=== PATIENT | female | born 1995 | race Caucasian/White ===

== ENCOUNTER 2018-05-21 16:46 | Observation (INO) ==
[2018-05-21] MEDS ORDERED: hydrOXYzine pamoate 25 MG CAPSULE PO PRN (22:52)
[2018-05-21] MEDS ORDERED: Acetaminophen/Aspirin/Caffeine TABLET PO PRN (22:57)
[2018-05-21] MEDS ORDERED: Ondansetron ODT 4 MG TAB.RAPDIS SL PRN (23:02)
[2018-05-21] MEDS ORDERED: NON-FORMULARY MEDICATION 1 EACH EACH (Rizatriptan Benzoate [Maxalt] 10 MG) PO SCH (23:34)
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
[2018-05-22 01:49] LABS: Amphetamine Screen,Urine Negative ng/mL (Cutoff=1000); Barbiturate Screen,Urine Negative ng/mL (Cutoff=200); Benzodiazepines Screen,Urine Negative ng/mL (Cutoff=200); Cannabinoid Screen,Urine Negative ng/mL (Cutoff = 50); Cocaine Screen,Urine Negative ng/mL (Cutoff= 300); Opiate Screen,Urine Negative ng/mL (Cutoff=300); Phencyclidine Screen,Urine Negative ng/mL (Cutoff=25)
[2018-05-22] MEDS ORDERED: *HR* LORazepam 2 MG/ML VIAL IVP ONE ×2 (03:21→03:27)
[2018-05-22] MEDS ORDERED: *HR* LORazepam 0.5 MG TABLET PO ONE (03:32)
[2018-05-22] MEDS: Acetaminophen/Butalbital/CaffeineTABLET PO PRN ×2 (03:52→18:20)
[2018-05-22 04:34] LABS: Basophils % 0.5 %; Eosinophils # 0.1 K/mcL (0.0-0.6); Eosinophils % 1.6 %; Hemoglobin 12.8 g/dL (11.5-15.4); Immature Granulocytes % 0.2 % (0-4); Lymphocytes # 2.3 K/mcL (0.6-4.6); Lymphocytes % 29.1 %; Mean Corpuscular Hemoglobin 26.2 pg (28.0-33.3); Mean Platelet Volume 10.5 fL (9.4-12.4); Monocytes # 0.5 K/mcL (0.0-1.3); Monocytes % 5.9 %; Platelet Count 247 K/mcL (140-400); Red Blood Count 4.88 M/mcL (3.82-4.97); Red Cell Distribution Width 13.7 % (11.5-14.5); Segmented Neutrophils % 62.7 %
[2018-05-22 04:50] LABS: Alanine Aminotransferase 21 Units/L (7-52); Albumin 4.2 g/dL (3.5-5.7); Albumin/Globulin Ratio 1.6 (1.1-2.2); Alkaline Phosphatase 70 Units/L (34-104); Aspartate Amino Transferase 18 Units/L (13-39); BUN/Creatinine Ratio 19 (6-26); Bilirubin,Total 0.3 mg/dL (0.3-1.0); Blood Urea Nitrogen 10 mg/dL (6-20); Calcium 9.5 mg/dL (8.6-10.3); Carbon Dioxide 23 mEq/L (23-29); Chloride 107 mEq/L (98-107); Globulin 2.7 g/dL (2.4-3.5); Glucose 83 mg/dL (70-105); Osmolality,Calculated 284 (280-300); Potassium 3.7 mEq/L (3.5-5.1); Sodium 138 mEq/L (136-145); Total Protein 6.9 g/dL (6.4-8.9); eGFR For Non-African Americans > 60 (> 60)
[2018-05-22] MEDS: *HR* Heparin 5,000 UNIT/ML VIAL SQ SCH ×2 (07:05→16:13)
--- NOTE | 2018-05-22 08:59 | Internal Med Progress Note ---
Hospitalist Progress Note - Encounter Date of Encounter: 05/22/18 Time of Encounter: 09:00 - Subjective Interval History: 22 year old female with a history of migraine headaches who presents with a chief complaint of right sided headache and left hand numbness and weakness. Her headache began approximately 13 days ago and she ranks it as severe and cons tant. Her sensory changes and weakness were first noticed at 9am this morning when the patient woke up. She states that her hand feels numb, she can sense pressure, but not fine touch. She states that the sensory changes cover her entire left hand to the wrist. She also notes weakness in her hand with a complete inability to move her left hand or any of her fingers - Exam Vitals: Temp Pulse Resp BP Pulse Ox 97.5 F L 86 15 134/83 97 05/22/18 07:04 05/22/18 07:04 05/22/18 07:04 05/22/18 07:04 05/22/18 07:04 Exam: Constitutional: alert and oriented, no acute distress, has sunglasses on due to photophobia HEENT: PERRL, EOMI, no oropharyngeal lesions, external ears and nares patent. Head is atraumatic normocephalic. Neck: no jvd, trachea midline Cardiovascular: regular rate and rhythm, no murmurs Respiratory: clear to auscultation bilaterally Abdomen: soft nontender, no guarding or rigidity Extremities: no cyanosis clubbing or edema neurological: -Cranial nerves: EOMI, PERRL, no facial asymmetry, no facial sensory changes, no dysarthria, tongue and uvula midline -Upper extremities: Engine Installer strength is 0/5 in the left hand, 5/5 in the right hand. Rest of upper extremity strength is 5/5 bilaterally. sensory changes on the left hand with decreased sensation to light touch. 2+ bicep reflexes bilate rally. -Lower extremities: strength is 5/5 bilaterally throughout, no sensory changes/. Patellar reflexes 2+ bilaterally. - Assessment and Plan (1) Complicated migraine Current Visit: Yes Status: Acute Assessment and Plan: Pt complains of migraine of 2 week history. Transferred from [facility] Neurology consulted and appreciate recs. Obtain MRI brain and cervical spine Pain control PRN with tramdol, sumatriptan and toradol PRN (2) Left hand weakness Current Visit: Yes Status: Acute Assessment and Plan: See #1. Follow up MRI head (3) Morbid obesity Current Visit: Yes Status: Acute Assessment and Plan: Diet and exercise (4) DVT prophylaxis Current Visit: Yes Status: Acute Assessment and Plan: Heparin sc - Time Spent with Patient Total time spent is greater than 50% in coordination of care (as documented) at patient's floor/unit and/or counseling patient: Internal Medicine: Result - Labs CBC & Chem 7: 05/22/18 03:49 05/22/18 03:49 Labs: Short CBC 05/22/18 Range/Units 03:49 WBC 8.0 (4.3-11.1) K/mcL Hgb 12.8 (11.5-15.4) g/dL Hct 40.0 (35.3-44.9) % Plt Count 247 (140-400) K/mcL Neutrophils # 5.0 (1.6-8.9) K/mcL BMP 05/22/18 03:49 Sodium 138 Potassium 3.7 Chloride 107 Carbon Dioxide 23 BUN 10 Creatinine 0.54 L Glucose 83 Calcium 9.5 Liver Function 05/22/18 Range/Units 03:49 Total Bilirubin 0.3 (0.3-1.0) mg/dL AST 18 (13-39) Units/L ALT 21 (7-52) Units/L Alkaline Phosphatase 70 (34-104) Units/L Albumin 4.2 (3.5-5.7) g/dL Consult Discharge Plan - Plan Referrals: NONE,PCP [Primary Care Provider] -
[2018-05-22] MEDS ORDERED: (Rizatriptan Benzoate [Maxalt] 10 MG) PO PRN (09:00)
[2018-05-22] MEDS: Vitamin B Complex/Vit C/Vit E 1 EACH TABLET PO SCH (09:38)
[2018-05-22] MEDS: Venlafaxine XR (24 HR) 75 MG CAP.ER.24H PO SCH (09:38)
[2018-05-22] MEDS ORDERED: Ketorolac 15 MG/ML VIAL IM ONE (12:00)
[2018-05-22] MEDS ORDERED: SUMAtriptan 6 MG/0.5 ML SQ ONE (12:09)
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
[2018-05-22] MEDS: traMADol 50 MG TABLET PO PRN ×2 (14:19→22:10)
[2018-05-22] MEDS ORDERED: cloNIDine HCl 0.1 MG TABLET PO SCH (21:00)
[2018-05-22] MEDS ORDERED: tiZANidine 4 MG TABLET PO SCH (21:00)
[2018-05-23] MEDS: Acetaminophen/Butalbital/CaffeineTABLET PO PRN ×2 (01:16→08:58)
[2018-05-23 04:12] LABS: Basophils % 0.6 %; Eosinophils # 0.2 K/mcL (0.0-0.6); Eosinophils % 2.2 %; Hematocrit 38.7 % (35.3-44.9); Hemoglobin 11.9 g/dL (11.5-15.4); Immature Granulocytes % 0.3 % (0-4); Lymphocytes % 28.3 %; Mean Corpuscular HGB Conc 30.7 g/dL (31.6-35.5); Mean Corpuscular Hemoglobin 25.5 pg (28.0-33.3); Mean Platelet Volume 10.1 fL (9.4-12.4); Monocytes # 0.4 K/mcL (0.0-1.3); Monocytes % 6.1 %; Neutrophils # 4.5 K/mcL (1.6-8.9); Platelet Count 234 K/mcL (140-400); Red Blood Count 4.66 M/mcL (3.82-4.97); Red Cell Distribution Width 13.9 % (11.5-14.5); Segmented Neutrophils % 62.5 %
[2018-05-23 04:30] LABS: BUN/Creatinine Ratio 23 (6-26); Blood Urea Nitrogen 14 mg/dL (6-20); Calcium 9.2 mg/dL (8.6-10.3); Carbon Dioxide 25 mEq/L (23-29); Chloride 107 mEq/L (98-107); Glucose 111 mg/dL (70-105); Magnesium 1.9 mg/dL (1.6-2.6); Osmolality,Calculated 289 (280-300); Phosphorous 4.8 mg/dL (2.7-4.5); Potassium 3.9 mEq/L (3.5-5.1); Sodium 139 mEq/L (136-145); eGFR For Non-African Americans > 60 (> 60)
[2018-05-23] MEDS: *HR* Heparin 5,000 UNIT/ML VIAL SQ SCH (04:57)
--- NOTE | 2018-05-23 08:34 | Internal Med Progress Note ---
Hospitalist Progress Note - Encounter Date of Encounter: 05/23/18 Time of Encounter: 08:30 - Subjective Interval History: 22 year old female with a history of migraine headaches who presents with a chief complaint of right sided headache and left hand numbness and weakness. Her headache began approximately 13 days ago and she ranks it as severe and cons tant. Her sensory changes and weakness were first noticed at 9am this morning when the patient woke up. She states that her hand feels numb, she can sense pressure, but not fine touch. She states that the sensory changes cover her entire left hand to the wrist. She also notes weakness in her hand with a complete inability to move her left hand or any of her fingers - Exam Vitals: Temp Pulse Resp BP Pulse Ox 97.7 F 79 16 110/66 96 05/23/18 07:58 05/23/18 07:58 05/23/18 07:58 05/23/18 07:58 05/23/18 07:58 Exam: Constitutional: alert and oriented, no acute distress, has sunglasses on due to photophobia HEENT: PERRL, EOMI, no oropharyngeal lesions, external ears and nares patent. Head is atraumatic normocephalic. Neck: no jvd, trachea midline Cardiovascular: regular rate and rhythm, no murmurs Respiratory: clear to auscultation bilaterally Abdomen: soft nontender, no guarding or rigidity Extremities: no cyanosis clubbing or edema neurological: -Cranial nerves: EOMI, PERRL, no facial asymmetry, no facial sensory changes, no dysarthria, tongue and uvula midline -Upper extremities: Podiatrist strength is 0/5 in the left hand, 5/5 in the right hand. Rest of upper extremity strength is 5/5 bilaterally. sensory changes on the left hand with decreased sensation to light touch. 2+ bicep reflexes bilater ally. -Lower extremities: strength is 5/5 bilaterally throughout, no sensory changes/. Patellar reflexes 2+ bilaterally. - Assessment and Plan (1) Complicated migraine Current Visit: Yes Status: Acute Assessment and Plan: Pt complains of migraine of 2 week history. Transferred from [facility] Neurology consulted and appreciate recs. Obtain MRI brain and cervical spine Pain control PRN with tramdol, sumatriptan and toradol PRN (2) Left hand weakness Current Visit: Yes Status: Acute Assessment and Plan: See #1. Follow up MRI head (3) Morbid obesity Current Visit: Yes Status: Acute Assessment and Plan: Diet and exercise (4) DVT prophylaxis Current Visit: Yes Status: Acute Assessment and Plan: Heparin sc - Time Spent with Patient Total time spent is greater than 50% in coordination of care (as documented) at patient's floor/unit and/or counseling patient: Internal Medicine: Result - Labs CBC & Chem 7: 05/23/18 03:50 05/23/18 03:50 Labs: Short CBC 05/23/18 Range/Units 03:50 WBC 7.2 (4.3-11.1) K/mcL Hgb 11.9 (11.5-15.4) g/dL Hct 38.7 (35.3-44.9) % Plt Count 234 (140-400) K/mcL Neutrophils # 4.5 (1.6-8.9) K/mcL BMP 05/23/18 03:50 Sodium 139 Potassium 3.9 Chloride 107 Carbon Dioxide 25 BUN 14 Creatinine 0.61 Glucose 111 H Calcium 9.2 Consult Discharge Plan - Plan Referrals: NONE,PCP [Primary Care Provider] -
--- NOTE | 2018-05-23 08:39 | Neurology Progress Note ---
Addendum entered and electronically signed by Anastasiya aFye MD 05/24/18 14:12: pt seen FACE TO FACE , agree with Documentation and plan, Anastasiya Faye MD Original Note: <Benny Jefferson - Last Filed: 05/23/18 08:34> Date of Encounter: 05/23/18 Time of Encounter: 08:34 Assessment and Plan (1) Left hand weakness Current Visit: Yes Status: Acute (2) Headache, chronic migraine without aura, with status migrainosus Current Visit: Yes Status: Acute Patient seen and examined at bedside today. She has continued to have migraine headache without relief 15 days. She is also having left upper arm numbness and paresthesias as well as left hand weakness with diminished returned goods inspector strength on exam. The patient is many objective findings on my neurological exam, portions of the exam are out of proportion to other exam findings. She does appear to have some somatization as well. Etiology of headache, numbness, weakness and paresthesias are unclear. Initial CT imaging of the head was negative. MRI of brain and C-spine pending completion. Continuous sumatriptan for headaches Continue IM Toradol Qualifiers: Intractability: intractable Qualified Code(s): G43.711 - Chronic migraine without aura, intractable, with status migrainosus Subjective Principal diagnosis: Numbness, tingling, weakness Interval history: Neurology consulted for intractable migraines, left upper extremity numbness, tingling and weakness. Patient seen and examined at bedside today. No acute change condition overnight. She is continuing to report the migraines, paresthesias and weakness. She reports that she has not had any improvement in symptoms. Assessment plan of care including further neuroimaging. Patient verbalizes understanding denies any further questions at this time. Objective - Constitutional Vitals: Temp Pulse Resp BP Pulse Ox 97.7 F 79 16 110/66 96 05/23/18 07:58 05/23/18 07:58 05/23/18 07:58 05/23/18 07:58 05/23/18 07:58 Exam: Examination: General Examination: *CONSTITUTIONAL: Alert and oriented 3, calm and cooperative with a flat affect, no acute distress *GENERAL APPEARANCE OF PATIENT appears healthy and well groomed *EYES: pupils equal, round, reactive to light and accommodation Musculoskeletal: *GAIT AND STATION sitting upright in bed unassisted with erect posture *ASSESSMENT OF MUSCLE STRENGTH IN THE UPPER AND LOWER EXTREMITIES bilateral deltoid, bicep, tricep, hip flexors ,anterior tibialis, dorsoflexion of the foot 5/5. Left returned goods inspector strength is diminished, however returned goods inspector strength findings are out of proportion to other exam findings *MUSCLE TONE IN THE UPPER AND LOWER EXTREMITIES normal. No abnormal movements, fasciculations or atrophy identified. Neurological: *ORIENTATION to time, person, situation and place *RECURRENT AND REMOTE MEMORY intact *ATTENTION AND CONCENTRATION are normal *LANGUAGE FUNCTION no significant aphasia or dysarthia was noted. *FUND OF KNOWLEDGE aware of current events, past history, vocabulary *MENTAL attention span and concentration normal. *CN II optic fundi were normal, no papilledema noted. *CN III,IV, PERRLA extraocular eye movements were full, no nystagmus and no ptosis noted. *CN V shows normal sensation and jaw opens symmetrically. *CN VII shows normal facial movement symmetrically, upper and lower bilaterally. *CN VIII shows no significant hearing loss on examination in the office. *CN IX,,X palate elevated symmetrically *CN XI normal strength in the sternocleidomastoid muscles, symmetrical shoulder shrugging. *CN XII tongue protruded in the midline, with normal strength and movement. *SENSORY EXAMINATION right upper extremity and bilateral lower extremities with intact sensory. Left upper arm with diminished sensation *REFLEXES: deep tendon reflexes were normal diffusely diminished throughout *CEREBELLAR TESTING no evidence of pronator drift *PAIN LEVEL chronic headache Results - Laboratory Findings CBC and BMP: 05/23/18 03:50 05/23/18 03:50 Abnormal lab findings: Abnormal lab results MCH 25.5 pg (28.0-33.3) L 05/23/18 03:50 MCHC 30.7 g/dL (31.6-35.5) L 05/23/18 03:50 Glucose 111 mg/dL (70-105) H 05/23/18 03:50 Phosphorus 4.8 mg/dL (2.7-4.5) H 05/23/18 03:50 Consult Discharge Plan - Plan Referrals: NONE,PCP [Primary Care Provider] - <Anastasiya Faye I - Last Filed: 05/23/18 12:36> Date of Encounter: 05/23/18 Assessment and Plan (1) Headache, chronic migraine without aura, with status migrainosus Current Visit: Yes Status: Acute MRI OF BRAIN AND C SPINE IS UNREMARKABLE. CLINICAL SYMPTOMS AND EXAM FINDINGS NOT TYPICAL FOR PSEUDOTUMOR, but if need to be excluded recommend Ophthalmology eval can do as OUTPT, and later can be evaluated by neurology if there is a need of CSF pressure eval or not/ continue IMITREX NASAL SPRAY PRN with NSAID and ZANAFLEX at night 2 mg daily she can see her Neurologist in [facility], she was also using CBD oil which helped she may f/u with the same provider call if any questions Anastasiya Faye MD Qualifiers: Intractability: intractable Qualified Code(s): G43.711 - Chronic migraine without aura, intractable, with status migrainosus (2) Left hand weakness Current Visit: Yes Status: Acute Objective - Constitutional Vitals: Temp Pulse Resp BP Pulse Ox 98.9 F 78 17 108/68 95 05/23/18 11:00 05/23/18 11:00 05/23/18 11:00 05/23/18 11:00 05/23/18 11:00 Results - Laboratory Findings CBC and BMP: 05/23/18 03:50 05/23/18 03:50 Abnormal lab findings: Abnormal lab results MCH 25.5 pg (28.0-33.3) L 05/23/18 03:50 MCHC 30.7 g/dL (31.6-35.5) L 05/23/18 03:50 Glucose 111 mg/dL (70-105) H 05/23/18 03:50 Phosphorus 4.8 mg/dL (2.7-4.5) H 05/23/18 03:50
[2018-05-23] MEDS ORDERED: *HR* LORazepam 0.5 MG TABLET ONE (08:54)
[2018-05-23] MEDS: *HR* LORazepam 0.5 MG TABLET PO ONE ×2 (08:57→10:19)
[2018-05-23] MEDS: Venlafaxine XR (24 HR) 75 MG CAP.ER.24H PO SCH (08:58)
[2018-05-23] MEDS: Vitamin B Complex/Vit C/Vit E 1 EACH TABLET PO SCH (08:58)
[2018-05-23 11:04] VITALS: BP 108/68
[2018-05-23] MEDS: traMADol 50 MG TABLET PO PRN (11:29)
--- NOTE | 2018-05-23 13:01 | Discharge Summary ---
Orders not resulted at time of discharge: Pending orders 05/24/18 04:00 Basic Metabolic Panel AM 0400 CBC [Complete Blood Count] [HEME] AM 0400 Magnesium AM 0400 Phosphorous AM 0400 05/25/18 04:00 Basic Metabolic Panel AM 0400 CBC [Complete Blood Count] [HEME] AM 0400 Magnesium AM 0400 Phosphorous AM 0400 05/26/18 04:00 Basic Metabolic Panel AM 0400 CBC [Complete Blood Count] [HEME] AM 0400 Magnesium AM 0400 Phosphorous AM 0400 05/27/18 04:00 Basic Metabolic Panel AM 0400 CBC [Complete Blood Count] [HEME] AM 0400 Magnesium AM 0400 Phosphorous AM 0400 05/28/18 04:00 Basic Metabolic Panel AM 0400 CBC [Complete Blood Count] [HEME] AM 0400 Magnesium AM 0400 Phosphorous AM 0400 Date of Encounter: 05/23/18 Time of Encounter: 13:00 - Discharge Diagnosis (1) Complicated migraine Priority: Primary Status: Acute Assessment and Plan: 22 year old female with a history of migraine headaches who presents with a chief complaint of right sided headache and left hand numbness and weakness. Her headache began approximately 13 days ago and she ranks it as severe and constant. Her sensory changes and weakness were first noticed at 9am this morning when the patient woke up. She states that her hand feels numb, she can sense pressure, but not fine touch. She states that the sensory changes cover her entire left hand to the wrist. She also notes weakness in her hand with a c omplete inability to move her left hand or any of her fingers. This prompted her to visit the [facility] emergency department. CBC, BMP, and UA were unremarkable. She received benadryl, zofran, toradol, and fluids but only received little benefit. CT head and cervical spine were obtained and were unremarkable. Patient was transferred to [facility] for further care and management. She was assessed with a complicated migraine and started on fioricet, tramadol prn and tizanidine which she says gave her no relief. She notes she first started having the migraines after a concussion in 2016. She was seen by neurology who recommended an MRI head and cervical spine. Both tests were unremarkable. Pseudotumor cerebri is low on her differentials per neuro, but they recommend outpatient followup with opthalmology/ PCP for funsduscopy and will consider an LP outpatient if she has optic disc swelling. She was discharged on nasal sumatriptan, tizanidine and firoicet prn. Outpatient follow up with neurology and PCP (2) Left hand weakness Priority: Primary Status: Acute (3) Morbid obesity Priority: Primary Status: Acute (4) DVT prophylaxis Priority: Primary Status: Acute Hospital course: Ms. Kim is a 22 year old female - Time Spent with Patient Total time spent providing and/or coordinating discharge services: - Discharge Medications Prescriptions: Acetaminophen/Butalbital/Caffe [Fioricet] 1 each PO Q6H PRN 20 Days #60 tablet PRN Reason: Migraine Headache Sumatriptan [Imitrex] 20 mg NS BID 30 Days #60 spray Tizanidine HCl 2 mg PO HS 30 Days #30 tablet Home Medications: HydrOXYzine Pamoate [Vistaril] 50 mg PO Q6HR PRN 05/21/18 [History] Non-Formulary Medication 2 tab PO DAILY 05/21/18 [History] Venlafaxine HCl [Venlafaxine HCl ER] 75 mg PO DAILY 05/21/18 [History] Vitamin B Complex/Folic Acid 1 tab PO DAILY 05/21/18 [History] cloNIDine HCl [Clonidine HCl] 0.1 mg PO HS 05/21/18 [History] Acetaminophen/Butalbital/Caffe [Fioricet] 1 each PO Q6H PRN 20 Days #60 tablet 05/23/18 [Rx] Sumatriptan [Imitrex] 20 mg NS BID 30 Days #60 spray 05/23/18 [Rx] Tizanidine HCl 2 mg PO HS 30 Days #30 tablet 05/23/18 [Rx] Allergies/Adverse Reactions: Allergy/AdvReac Type Severity Reaction Status Date / Time Amoxicillin Allergy Hives Verified 05/21/18 19:16 Cefprozil [From Cefzil] Allergy Hives Verified 05/21/18 19:16 latex Allergy Rash Verified 05/21/18 19:16 Penicillins Allergy Anaphylaxis Verified 05/21/18 19:16 Date of admission: 05/21/18 18:29 Primary care physician: PCP NONE Consults: 05/21/18 22:46 Consult to Neurology [CONS] Routine Consulting Provider: Neurology [facility] Reason for Consult: Migraines, right sided headache, left hand parasthesias/weakness Call Completed: No - Constitutional Vitals: Temp Pulse Resp BP Pulse Ox 98.9 F 78 17 108/68 95 05/23/18 11:00 05/23/18 11:00 05/23/18 11:00 05/23/18 11:00 05/23/18 11:00 Exam: Constitutional: alert and oriented, no acute distress, has sunglasses on due to photophobia HEENT: PERRL, EOMI, no oropharyngeal lesions, external ears and nares patent. Head is atraumatic normocephalic. Neck: no jvd, trachea midline Cardiovascular: regular rate and rhythm, no murmurs Respiratory: clear to auscultation bilaterally Abdomen: soft nontender, no guarding or rigidity Extremities: no cyanosis clubbing or edema neurological: -Cranial nerves: EOMI, PERRL, no facial asymmetry, no facial sensory changes, no dysarthria, tongue and uvula midline -Upper extremities: [employer] strength is 0/5 in the left hand, 5/5 in the right hand. Rest of upper extremity strength is 5/5 bilaterally. sensory changes on the left hand with decreased sensation to light touch. 2+ bicep reflexes bilaterally. -Lower extremities: strength is 5/5 bilaterally throughout, no sensory changes/. Patellar reflexes 2+ bilaterally. - Patient Status Disposition: Home, Self-Care - Discharge Instructions Instructions: Migraine Headache (DC), Migraine Headache (GEN) Follow Up With: Laura Fischer MD [Other] (Unable to reach office at this time. A voicemail was left with the office to contact patient to schedule an appointment. ) Anastasiya Faye MD [Partnered Physician] - (Appointment has been web requested. Office will call with follow up appointment.)
== END 2018-05-23 14:55 | disposition home or self-care (01) ==
LOC: 3BNU
PROVIDERS: ADMIT Internal Medicine; ATTEND Internal Medicine